=== PATIENT | male | born 1950 | race Two or more races ===

== ENCOUNTER → 2016-07-05 | Outpatient (CLI) | payer OTHER ==
[2016-07-05 17:19] LABS: BUN 18 mg/dL (7-18)
[2016-07-05 17:22] LABS: GFR (ESTIMATED) 61 ML/MIN (>60)
== END ==
LOC: MAY-LAB 17:01
PROVIDERS: Internal Medicine Cardiovascular Disease
DX: E78.5 Hyperlipidemia, unspecified (principal)